=== PATIENT | female | born 1995 | race American Indian/Alaskan Native ===

== ENCOUNTER 2017-10-05 11:14 | Emergency (ER) | payer OTHER ==
[2017-10-05 11:26] VITALS: BMI 21.9
[2017-10-05 11:44] VITALS: TEMP 98
--- NOTE | 2017-10-05 12:15 | C.PDOC ---
History Of Present Illness 22 year old female presents to the ED c/o sharp like right sided CP for the past 2 days. Patient reports her pain worsens with deep breathing and movement. Patient has no history of DVT/PE and is currently on control. Patient denies any recent surgeries, SOB, cough, fever, chills, nausea, vomit. Time Seen by Provider: 10/05/17 11:47 Chief Complaint (Nursing): Chest Pain History Per: Patient History/Exam Limitations: no limitations Onset/Duration Of Symptoms: Days Current Symptoms Are (Timing): Still Present Quality: Sharp Associated Symptoms: Nausea Exacerbating Factors: Movement, Deep Breathing Alleviating Factors: None Recent travel outside of the [place]: No Additional History Per: Patient Past Medical History Reviewed: Historical Data, Nursing Documentation, Vital Signs Vital Signs: Last Vital Signs Temp 98 F 10/05/17 11:35 Pulse 81 10/05/17 12:52 Resp 20 10/05/17 12:52 BP 122/73 10/05/17 12:52 Pulse Ox 98 10/05/17 12:52 - Medical History PMH: No Chronic Diseases Surgical History: No Surg Hx Family History: States: Unknown Family Hx - Social History Hx Tobacco Use: No Hx Alcohol Use: No Hx Substance Use: No - Immunization History Hx Tetanus Toxoid Vaccination: No Hx Influenza Vaccination: No Hx Pneumococcal Vaccination: No Review Of Systems Constitutional: Negative for: Fever, Chills Cardiovascular: Positive for: Chest Pain. Negative for: Palpitations Respiratory: Negative for: Cough, Shortness of Breath Gastrointestinal: Negative for: Nausea, Vomiting, Abdominal Pain Genitourinary: Negative for: Incontinence Musculoskeletal: Negative for: Back Pain Skin: Negative for: Rash Neurological: Negative for: Weakness, Numbness, Headache Physical Exam - Physical Exam Appears: Non-toxic, No Acute Distress Skin: Normal Color, Warm, Dry Head: Atraumatic, Normacephalic Eye(s): bilateral: Normal Inspection Ear(s): Bilateral: Normal Nose: No Discharge, No Deformity Oral Mucosa: Moist Neck: Normal ROM, Supple Chest: Symmetrical Cardiovascular: Rhythm Regular, No Murmur Respiratory: Normal Breath Sounds, No Rales, No Rhonchi, No Wheezing Gastrointestinal/Abdominal: Soft, No Tenderness, No Guarding, No Rebound Extremity: Normal ROM, No Pedal Edema, No Calf Tenderness, No Deformity, No Swelling Neurological/Psych: Oriented x3, Normal Speech, Normal Cognition Gait: Steady ED Course And Treatment ECG: Interpreted By Me, Viewed By Me ECG Rhythm: Sinus Rhythm ECG Interpretation: Normal Interpretation Of ECG: NSR at 62 BPM, no ST or T wave abnormalities, normal axis and normal intervals Rate From EC O2 Sat by Pulse Oximetry: 100 (On RA) Pulse Ox Interpretation: Normal - Radiology CXR: Interpreted by Me, Viewed By Me CXR Interpretation: Yes: No Acute Disease. No: Infiltrates Medical Decision Making Medical Decision Making: Impression : Chest wall pain Plan: * EKG * CXR * Motrin 400 mg PO Disposition - Disposition Referrals: [facility] [Outside] Disposition: HOME/ ROUTINE Disposition Time: 12:48 Condition: STABLE Additional Instructions: follow up with doctor in 2 days call to make an appointment continue medications at home return to ER if symptoms worsens or progress Prescriptions: Naproxen [Naprosyn] 500 mg PO BID PRN #16 tab PRN Reason: Pain, Moderate (4-7) Instructions: Chest Wall Pain (ED) Forms: General Discharge Instructions, [facility] (Swedish) - Clinical Impression Clinical Impression: Chest pain, Chest wall pain - Scribe Statement The provider has reviewed the documentation as recorded by the Scribe Joe Amaral All medical record entries made by the Scribe were at my direction and personally dictated by me. I have reviewed the chart and agree that the record accurately reflects my personal performance of the history, physical exam, medical decision making, and the department course for this patient. I have also personally directed, reviewed, and agree with the discharge instructions and disposition.
--- NOTE | 2017-10-05 12:40 | RAD ---
Chest x-ray two views History: Cough. Comparison: None available. Findings: Hyperinflation suggestive for COPD and or emphysematous changes. Bibasilar breast and nipple shadows. Heart size within normal limits. Impression: No focal infiltrate or effusion.
[2017-10-05 12:52] VITALS: BP 122/73; PULSE 81; RESP 20
[2017-10-06 17:17] VITALS: O2SAT 100
--- NOTE | 2017-10-06 17:17 | CARD ---
APPROVED REPORT EKG Measurement Heart [id number] <Conclusion> Normal sinus rhythm with sinus arrhythmia Normal ECG
== END 2017-10-05 12:52 | disposition home or self-care (01) ==
LOC: C.ER 11:14
DX: R07.89 Other chest pain (principal)